=== PATIENT | female | born 1995 | race Caucasian/White ===

== ENCOUNTER → 2023-09-24 09:26 | Outpatient (CLI) | payer OTHER, SELFPAY ==
[2023-09-24 10:18] LABS: Add Manual Diff / Slide Review NO; Basophils Absolute Auto 0 /uL (0-100); Basophils Percent Auto 0.2 % (0-2); Eosinophils Absolute Auto 0 /uL (0-450); Eosinophils Percent Auto 0.3 % (2-4); Hematocrit 37.5 % (36-46); Hemoglobin 13.2 g/dL (12.0-16.0); Lymphocytes Absolute Auto 1600 /uL (1100-4500); Lymphocytes Percent Auto 17.5 % (25-40); Mean Corpuscular HGB Conc 35.3 % (30-36); Mean Corpuscular Hemoglobin 31.5 PG (26-34); Monocytes Absolute Auto 600 /uL (0-900); Monocytes Percent Auto 6.2 % (3-14); Neutrophils Absolute Auto 6800 /uL (1500-7000); Neutrophils Percent Auto 75.8 % (50-75); Platelet Count 294 X10^3/uL (150-400); Red Blood Cell Count 4.21 X10^6/uL (4.0-5.2); Red Cell Distribution Width 12.7 % (11.6-14.8)
[2023-09-24 11:01] LABS: Appearance Urine UA CLEAR; Bilirubin Urine UA NEGATIVE (NEGATIVE); Color Urine UA YELLOW; Glucose Urine UA NEGATIVE (Negative); Ketones Urine UA NEGATIVE (NEGATIVE); Leukocyte Esterase Urine UA 1+ (NEGATIVE); Nitrite Urine UA NEGATIVE (Negative); Occult Blood Urine UA TRACE-INTACT (Negative); Protein Urine UA NEGATIVE (Negative); Urobilinogen Urine UA 0.2 E.U./dL (0.2)
[2023-09-24 11:30] LABS: pH Urine UA 5.5 (4.5-8.0)
[2023-09-24 12:04] LABS: Urine Chlamydia NOT DETECTED; Urine N gonorrhoeae NOT DETECTED
[2023-09-24 12:29] LABS: Bacteria Urine None Seen; Culture Indicated Urine Cult Not Indicated; RBC Urine 0-1/HPF (0-5/HPF); Squamous Epithelial Cell Urine 10-30 /HPF (0-5/HPF); WBC Urine 5-10/HPF (0-5/HPF)
[2023-09-25 05:16] LABS: HIV 1 & 2 Ab/Ag 4th Gen Combo NEGATIVE (NEGATIVE); Hep C Virus Ab w/Reflex Quant NEGATIVE s/c (NEGATIVE); Hepatitis B Surface Antigen NEGATIVE s/c (NEGATIVE); Rubella Antibody IgG 65.8 IU/mL (>15)
[2023-09-26 10:42] LABS: Varicella IgG Antibody 1128 index (Immune >165)
[2023-09-27 05:54] LABS: RPR Screen Non Reactive (Non Reactive)
== END ==
LOC: LAB 09:28
PROVIDERS: PCP Student in an Organized Health Care Education/Training Program; Referring Provider Student in an Organized Health Care Education/Training Program; Visit Provider Student in an Organized Health Care Education/Training Program
DX: Z34.01 Encounter for supervision of normal first pregnancy, first trimester (principal)
CPT/HCPCS: 36415; 80055; 81003; 81015; 86787; 86803; 86850; 86900; 86901; 87086; 87389; 87491; 87591

== ENCOUNTER → 2023-11-28 07:48 | Outpatient (CLI) | payer OTHER, SELFPAY ==
--- NOTE | 2023-11-28 07:49 | DI.US.S_ITS ---
PROCEDURE: US OB >= 14 WEEKS FETUS INDICATIONS: ANATOMY OUTSIDE/PRIOR DATING DATA: Last menstrual period (LMP): 07/16/2023. LMP-based estimated date of delivery (PENELOPE): 04/21/2024. First dating scan (date and location): 09/16/2023. Estimated date of delivery (PENELOPE) from first dating scan: 04/19/2024. The calculations are made using working PENELOPE of 04/21. TECHNIQUE: Real-time scanning was performed of the fetus, with image documentation and biometric measurements. COMPARISON: None. FINDINGS: General: A single living intrauterine gestation is present. Presentation: Variable. Placenta: Placental position is anterior , without previa. Amniotic fluid index: 15.6 cm, normal range is 5-24 cm. Single deepest vertical pocket is 5.1 cm. heart rate: 157 beats per minute. Maternal cervical canal: 0.3 cm long. Normal lower limit is 2.5 cm. biometrics: Biparietal diameter: 19 weeks 6 days Head circumference: 19 weeks 2 days Abdominal circumference: 19 weeks 5 days Femur length: 18 weeks 6 days Clinically estimated gestational age: 19 weeks 2 days Composite gestational age from present scan: 19 weeks 3 days Estimated weight and percentile: 286 g; 47% for gestational age. Anatomic survey: Neuro: Ventricles are non-dilated at less than 10 mm. Cisterna magna is normal at 3-11 mm. Cerebellum is normal in size and morphology. Nuchal skin fold: Normal at less than 6 mm between 14-21 weeks gestational age. Face: Nose and lips, facial profile are normal. Spine: No evidence for spina bifida. Heart: 4-chambered heart is present, with normal ventricular outflow tracts. Diaphragm: Diaphragm is intact. Stomach: Left-sided stomach is present. Kidneys: No hydronephrosis. Normal is less than 5 mm in 2nd trimester, less than 7 mm in 3rd trimester. Cord: 3-vessel cord has orthotopic insertion. Bladder: Normal in size. Extremities: All 4 extremities identified. Other: Question double nuchal cord. IMPRESSION: 1. A single living intrauterine gestation with appropriate interval growth. 2. Normal anatomic survey. 3. Question double nuchal cord. Recommend follow-up imaging as clinically indicated. We strive to produce accurate, complete, and clear reports of imaging services. To assist us in improving patient care, this report was composed using standard report templates and voice recognition software. Therefore, it may contain abnormal punctuation, insertions and/or omissions. Occasional wrong-word or sound-alike substitutions may occur. Though we review the report and make efforts to correct it, we do recommend that the report be read carefully in proper context to recognize any text inaccuracies. Measurement variability for biometric dating: +/- 7 days from 14 weeks to 15 weeks 6 days gestation, +/- 10 days from 16 weeks to 21 weeks 6 days gestation, +/- 2 weeks from 22 weeks to 27 weeks 6 days gestation, +/- 3 weeks for 28 weeks gestation or later. weight reference: 4500 g or EFW >90/95% is considered macrosomia or large for gestational age. EFW <10% is small for gestational age. EFW 5% or less is considered intra-uterine growth restriction. Dictated by: Yadira Judd M.D. on 11/28/2023 at 10:36 Approved by: Yadira Judd M.D. on 11/28/2023 at 10:43
== END ==
LOC: US 07:49
PROVIDERS: PCP Student in an Organized Health Care Education/Training Program; Referring Provider Family Medicine; Visit Provider Family Medicine
DX: Z34.82 Encounter for supervision of other normal pregnancy, second trimester (principal); Z3A.19 19 weeks gestation of pregnancy
CPT/HCPCS: 76811

== ENCOUNTER → 2023-12-12 11:08 | Outpatient (CLI) | payer OTHER, SELFPAY | PROVIDERS: PCP Student in an Organized Health Care Education/Training Program; Visit Provider Family Medicine | DX: Z34.80 Encounter for supervision of other normal pregnancy, unspecified trimester (principal); N39.0 Urinary tract infection, site not specified | CPT/HCPCS: 87086 ==

== ENCOUNTER 2024-04-12 23:13 | Inpatient (IN) | payer OTHER, SELFPAY ==
--- NOTE | 2024-04-12 23:24 | PM.OBTRLD ---
Visit Information Visit Information Date of evaluation: 04/12/24 Primary OB Provider: Sofia Jin On-call OB Provider: Sofia Jin Reason for Evaluation: Yes rupture of membranes Comments/Additional reasons for admission: 28YO @ 38wks 5day by LMP concordant with 9wk US here for evaluation of PROM. Noticed leaking of clear fluid at 1915 that has continued. Feeling moderate contractions all afternoon that are slowly increasing in frequency and intensity. Transferred into [facility] care in 2nd trimester from FPs at [facility]. Desires low intervention and to labor outside of the hospital as long as possible. 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) current occupational exposures/hazards: No special arthur needs: No travel history: recent (domestic, including [place], Covid in April) seatbelt use: always water heater temp set < 120 deg: Yes working smoke detector in home: Yes fire extinguisher in home: No (Will get one) carbon monox detector in home: Yes firearms in home: No do you feel safe at home: Yes Smoking Status: Never smoker second hand exposure: No alcohol intake: former (~3-4/week when not ) substance use type: does not use and marijuana (very occasionally, not while /) during the past year weight has: other (fluctuates a lot) well-balanced diet: daily or most days daily servings fruits/ve or more times/day caffeine: Yes (AM cup coffee, green tea in PM some days) Type(s) of exercise: aerobic, weight lifting and running frequency: 5-6 times per week Review of Systems Review of Systems ROS: Yes All systems reviewed with the patient and are negative except as otherwise documented Evaluation Evaluation Baseline heart rate: 125 Variability: Moderate (11-25) monitor accelerations: Present Monitor Decelerations: Absent
--- NOTE | 2024-04-13 00:24 | P.HPOB_ITS ---
OB HPI Date/Time Date of admission: 04/13/24 Date Patient Seen: 04/12/24 Time Patient Seen: 23:30 History of Present Condition Chief complaint: observation of labor PENELOPE Calculator 2 Estimated Delivery Date Method Current WG Current Estimate 04/21/24 LMP (Certain) 38w 6d Other Estimates 04/19/24 Ultrasound #1 39w 1d Estimated Gestational Age (weeks): 38.6 : 2 Para: 1 Narrative: 28YO @ 38wks 5day by LMP concordant with 9wk US here for evaluation of PROM. Noticed leaking of clear fluid at 1915 that has continued. Feeling moderate contractions all afternoon that are slowly increasing in frequency and intensity, strong while checking into hospital. Now breathing through strong contractions every 2-4 minutes, coping well. Feeling less FM since ROM. No vaginal bleeding. Continues to leak clear fluid. Transferred into [facility] care at 25weeks EGA from FPs at [facility]. Desires low intervention . Accompanied by her mother and partner, Christian. care: good care, initiated at week # (9), number of visits (8) and pounds weight gain (23) Dating criteria OB: LMP confirmed by 1st trimester US Ultrasounds: normal mid trimester US Obstetrical complications: none Medical complications OB: none Preadmission Labs Last OB Lab Results: 2 Blood Type O Positive 09/24/23 09:34 Antibody Screen Negative 09/24/23 09:34 Hct 40.7 % (36-46) 04/13/24 00:30 Hgb 14.1 g/dL (12.0-16.0) 04/13/24 00:30 Hep Bs Antigen Negative s/c (NEGATIVE) 09/24/23 09:34 Hepatitis C Antibody Negative s/c (NEGATIVE) 09/24/23 09:34 Rubella Antibody 65.8 IU/mL (>15) 09/24/23 09:34 VZV IgG Antibody 1128 index (Immune >165) 09/24/23 09:34 Glucose Tolerance Testin hr (102) -: Chlamydia screen: negative, Gonorrhea screen: negative and Urine: negative -: PAP smear: Normal Genetic Screens: Cell-free DNA: Normal External Labs -: Urine: negative Prior (ies) Past Pregnancies Del. Date GA/Weeks Labor Lgth Wt Sex Route Outcome Anesthesia Place Delv Breastfeed Preg Comp Name 08/21/21 39+ 23 2.948 kg Male vaginal live - full term epidural Berto Perrin 9 months other [place] Delivery Date: 08/21/21 Last Updated by: Manisha Greenfield RN 1st trimester HG Evaluation Evaluation Baseline heart rate: 125 Variability: Moderate (11-25) monitor accelerations: Present Monitor Decelerations: Absent Contraction Frequency (minutes): 2 Uterine Contraction Intensity: Moderate Status: Category l Comments: CE deferred until 2 hours of strong contractions PFSH Medical History Anxiety Skin tag Arm fracture Vitamin D deficiency Surgical History History of dental surgery [place] teeth extracted Family History Grandfather Neuroendocrine carcinoma Grandmother Lymphoma Grandmother Parkinson's disease Social History marital status: number of children: 1 household members: spouse and children lives independently: Yes caregiver/support person: Yes housing: house pets and animals: Yes (dogs) education level: college occupational status: 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, 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 [employer]) current occupational exposures/hazards: No special arthur needs: No travel history: recent (domestic, including [place], Covid in April) seatbelt use: always water heater temp set < 120 deg: Yes working smoke detector in home: Yes fire extinguisher in home: No (Will get one) carbon monox detector in home: Yes firearms in home: No do you feel safe at home: Yes Smoking Status: Never smoker second hand exposure: No alcohol intake: former (~3-4/week when not ) substance use type: does not use and marijuana (very occasionally, not while /) during the past year weight has: other (fluctuates a lot) well-balanced diet: daily or most days daily servings fruits/ve or more times/day caffeine: Yes (AM cup coffee, green tea in PM some days) Type(s) of exercise: aerobic, weight lifting and running frequency: 5-6 times per week Meds Home Medications and Allergies Home Medications Medication Instructions Recorded Confirmed Type calcium acetate-magnesium carb 450 tab PO 08/18/23 12/12/23 History mg-200 mg tablet cholecalciferol (vitamin D3) 250 250 mcg PO DAILY 08/18/23 12/12/23 History mcg (10,000 unit) capsule vitamin-ferrous sulfate tab PO 08/18/23 12/12/23 History 27 mg iron-folic acid 0.8 mg tablet ondansetron 4 mg disintegrating 4 mg PO Q8H PRN nausea and 09/16/23 12/12/23 Rx tablet vomiting #30 tabs Allergies Allergy/AdvReac Type Severity Reaction Status Date / Time Penicillins Allergy Intermediate Hives Verified 04/13/24 00:49 Review of Systems Review of Systems ROS: Yes All systems reviewed with the patient and are negative except as otherwise documented OB Exam Vital signs Blood Pressure: 127/82 Pulse Rate: 82 Respiratory Rate: 16 Temperature: 97.2 F Resp Effort & Inspection: normal respiratory effort and able to speak in complete sentences Auscultation: clear to auscultation bilaterally Cardio Rate: regular rate Rhythm: regular rhythm Heart Sounds: S1 normal and S2 normal Presentation: vertex Amniotic Fluid: clear Objective Labs 04/13/24 00:30 Assessment and Plan Assessment and Plan Assessment and Plan narrative: A: Tem primipara Approacing active labor SROM x 5 hours without sx of infection No indication for antibiotics at this time Cat I FHR P: Admit, routine labor orders. May switch to intermittent auscultation. Labor support PRN. Reassess in 1-2 hours or sooner, PRN. Time-Based Coding :: [TOTAL MINUTES] spent with patient and on the chart (including review of chart, obtaining history, exam, reviewing outside data, placing orders, documenting exam and treatment plan, and counseling patient) on [DATE].
[2024-04-13 00:44] VITALS: BP 127/82; PULSE 82; RESP 16; TEMP 36.2
[2024-04-13 00:47] VITALS: BP 122/78
[2024-04-13 00:51] LABS: Add Manual Diff / Slide Review NO; Basophils Absolute Auto 100 /uL (0-100); Basophils Percent Auto 0.7 % (0-2); Eosinophils Absolute Auto 0 /uL (0-450); Eosinophils Percent Auto 0.4 % (2-4); Hematocrit 40.7 % (36-46); Hemoglobin 14.1 g/dL (12.0-16.0); Lymphocytes Absolute Auto 3100 /uL (1100-4500); Lymphocytes Percent Auto 26.3 % (25-40); Mean Corpuscular HGB Conc 34.7 % (30-36); Mean Corpuscular Hemoglobin 31.3 PG (26-34); Mean Corpuscular Volume 90.2 fL (80-100); Monocytes Absolute Auto 700 /uL (0-900); Monocytes Percent Auto 6.2 % (3-14); Neutrophils Absolute Auto 7700 /uL (1500-7000); Neutrophils Percent Auto 66.4 % (50-75); Platelet Count 217 X10^3/uL (150-400); Red Blood Cell Count 4.51 X10^6/uL (4.0-5.2); Red Cell Distribution Width 13.2 % (11.6-14.8); White Blood Cell Count 11.7 X10^3/uL (4.5-11.0)
[2024-04-13] MEDS: ONDANSETRON 4 MG/2 ML INJ IV ×2 (01:13→02:22)
--- NOTE | 2024-04-13 02:08 | PM.OBPNLAB ---
Date/Time Date Patient Seen: 04/13/24 Time Patient Seen: 01:30 Pain Control Pain control: tolerating well Comments: Zeke has been coping well with strong contractions every 2-3 minutes by moving on the exercise ball and now using the cub on the bed. She continues to feel leaking of amniotic fluid. Her nausea was relieved by 1 dose of IV Zofran. , Christian, and Mother, Jennifer, present and supported. Vitals BP: 127/82 HR: 85 SpO2: 98% Temp: 36.2 C Pelvic Exam Dilation (cm): 5 Effacement (%): 75 station: -1 Amniotic membrane status: Leaking Comments: Clear fluid Contractions Monitor mode: Palpation Contraction frequency (min): 3 Contraction duration (min): 1 Contraction pattern: Regular Contraction intensity: Moderate Status Heart Rate Baseline: 130 Comments: Reassuring by IA Assessment and Plan Assessment: active labor Plan: continuous present management Comments: Assessment: Active labor, coping well SROM x 5 hours, no signs of infection FHR reassuring by IA Plan: Labor support PRN Continue IA Reassess in 4 hours or sooner PRN
--- NOTE | 2024-04-13 05:50 | P.PNOB_ITS ---
Date/Time Date Patient Seen: 04/13/24 Time Patient Seen: 05:30 Pain Control Pain control: other (Not tolerating well) Comments: Zeke labored in the tub briefly until she felt increased rectal pressure and an urge to push. After moving back to her room, she began pushing. After approx 1 hour, a bulging forebag was identified on exam and grossly ruptured while pushing. Zeke continued to labor for around an hour and then began to have int ense cramping in her left leg that impedes pushing. She tried NO2 with some relief. Is now requesting an epidural to cope with leg cramping. Vitals BP: 122/66 HR: 96 bpm Temp: 35.7 Pelvic Exam Dilation (cm): 9.5 (Anterior lip) Effacement (%): 100 station: -1 Amniotic membrane status: Leaking Comments: head deflexed and LOP Contractions Monitor mode: Palpation Contraction frequency (min): 3 Contraction pattern: Regular Contraction intensity: Moderate Status Heart Rate Baseline: 120 Comments: FHR reassuring by IA Assessment and Plan Assessment: active labor Plan: other Comments: Assessment: Active labor, not coping well Requesting epidural FHR reassuring by IA Plan: Consult anesthesia Initiate LR bolus and continuous monitoring Reassess post-epidural
--- NOTE | 2024-04-13 06:09 | PM.AN.REGBLK ---
Regional Block Pre-procedure Procedure: Continuous Lumbar Epidural for L&D Attending OB provider: Sofia Jin PMH/ROS narrative: 39+, labor, no complications obstetric or medical. ASA Class: II Labs: Hct 40.7 % (36-46) 04/13/24 00:30 Plt Count 217 X10^3/uL (150-400) 04/13/24 00:30 Medications: Current Medications Generic Name Dose Route Start Last Admin Trade Name Freq PRN Reason Stop Dose Admin Calcium Carbonate 1,000 mg 04/13/24 00:21 Calcium Carbonate 500 Mg Tab PO Q4HR PRN Dyspepsia Carboprost Tromethamine 250 mcg 04/13/24 00:07 Carboprost 250 Mcg/Ml Ampul IM Q90M PRN Bleeding Lactated Ringer's 1,000 mls @ 100 mls/hr 04/13/24 00:15 Lactated Ringers IV CONT EAN Oxytocin/Lactated Ringer's 30 unit in 500 mls @ 200 mls/hr 04/13/24 00:07 Oxytocin Premix IV CONT PRN Bleeding Protocol Tranexamic Acid 1,000 mg/ 100 mls @ 600 mls/hr 04/13/24 00:07 Sodium Chloride IV NOW PRN Bleeding Lidocaine HCl 20 ml 04/13/24 00:07 Lidocaine 1% 20 Ml INJ INTRA-OP PRN Post Delivery Methylergonovine Maleate 0.2 mg 04/13/24 00:07 Methylergonovine 0.2 Mg Tablet PO Q6HR PRN Heavy Bleeding Methylergonovine Maleate 0.2 mg 04/13/24 00:07 Methylergonovine 0.2 Mg/Ml Vial IM NOW PRN Bleeding Misoprostol 800 mcg 04/13/24 00:07 Misoprostol 200 Mcg Tablet MN NOW PRN Bleeding Misoprostol 400 mcg 04/13/24 00:07 Misoprostol 200 Mcg Tablet SL NOW PRN Bleeding Naloxone HCl 0.2 mg 04/13/24 00:07 Naloxone 0.4 Mg/Ml Vial IV Q2MIN PRN Opiate Reversal Ondansetron HCl 4 mg 04/13/24 00:21 04/13/24 02:22 Ondansetron 4 Mg/2 Ml Inj IV 4 mg Q4HR PRN Administration Nausea And Vomiting Oxytocin 10 unit 04/13/24 00:07 Oxytocin 10 Unit/Ml Vial IM NOW PRN Bleeding Allergies: Allergies Allergy/AdvReac Type Severity Reaction Status Date / Time Penicillins Allergy Intermediate Hives Verified 04/13/24 00:49 Procedure Insertion date: 04/13/24 Insertion time: : Prep/Local: betadine x3 and 1% lidocaine Interspace: L34 Patient position: sitting Needle: 18 gauge Hustead (CSE:27g Pencan throug Hustead, clear CSF, 1mL 0.25% bupiv) Loss of resistance with: saline JEFF at (cm): 6 Catheter placed at SKIN (cm): 12 Catheter in SPACE (cm): 6 Insertion: No CSF, No Blood, No Paresthesia with insertion, No Paresthesia with injection and No Test dose reaction Initial Medications TEST DOSE time: TEST DOSE: 1.5% lidocaine with epinephrine 1:200k (mL): 3 BOLUS DOSE time: :37 BOLUS DOSE (mL): 4 BOLUS DOSE med: other (infusate) Infusion INFUSION: 0.125% bupivacaine and with fentanyl 2 mcg/mL Initial rate (mL/hr): 10 Subsequent interventions: PCEA@10+4 Post-procedure Anesthesia date START: 04/13/24 Anesthesia time START: 06:16 Anesthesia date END: 04/13/24 Anesthesia time END: 07:44 Post-procedure Anesthesia Assessment: Yes CV function: HR/BP stable, Yes Resp function: RR/sat/airway adequate, Yes Post-op hydration adequate, Yes Pain control adequate, Yes Nausea & vomiting absent, Yes Temperature > 36 C, Yes Mental status appropriate and No Anesthesia complications
--- NOTE | 2024-04-13 08:01 | PM.OBPRVD ---
Labor & Delivery Delivery date: 04/13/24 Intrapartal Events: None Cervical ripening method: none Induction method: none Delivery monitor: none (Intermittent Auscultation prior to epidural), external FHT and external uterine Route of delivery: L&D Laceration Description: Superficial Quantitative Blood Loss: 50 Anesthesia Type: Epidural Complications: After Zeke received her epidural and rested for 30 minutes she was found to be 10/100/+1. She pushed for a short second stage of 3 minutes. FHR was category I throughout second stage. Normal spontaneous vaginal of vigorous male infant on 04/13/2024 at 0734 in NANCI position with reduction of compound left hand. Left hand manually reduced and anterior, then posterior shoulders delivered easily with maternal effort, four-handed catch by FOB and CNM. was placed on maternal abdomen, stimulated and dried. Apgars 9 at 1 min and 9 at 5 min. IV pitocin initiated. Delayed cord clamping until cord slopped pulsing after 5 minutes, at which time 3 vessel cord was doubly clamped and cut by FOB. Cord blood collected. Gentle cord traction led to spontaneous delivery of intact placenta in Schultze presentation. Fundus immediately firm and bleeding scant. Perineum and vagina were inspected and found to be intact, with one superficial laceration on the left labia no indication for repair. QBL 50 ml. Baby and mother are in stable condition. [place] Baby 1: gender: Male Presentation: compound (Hand) Position: Left Occiput Anterior Placenta delivery description: Spontaneous and Normal Configuration Cord Vessel Description: 3 Vessels score (1 min): 9 score (5 min): 9 weight: 3.525 kg Plan for aftercare: Routine care
[2024-04-13] MEDS: KETOROLAC 30 MG/ML VIAL IV (09:19)
[2024-04-13] MEDS: ACETAMINOPHEN 325 MG TABLET 650 MG PO ×2 (09:19→18:02)
[2024-04-13] MEDS: DERMOPLAST SPRAY 20% 60 ML 1 SPRAY TOP (09:20)
[2024-04-13] MEDS: LANOLIN OINT 7 GM 1 APPLIC TOP (09:20)
[2024-04-13] MEDS: WITCH HAZEL/GLYCERIN PADS 1 EACH TOP (09:21)
[2024-04-13] MEDS: IBUPROFEN 600 MG TABLET PO ×2 (15:11→21:01)
[2024-04-14] MEDS: ACETAMINOPHEN 325 MG TABLET 650 MG PO ×2 (00:07→06:08)
[2024-04-14] MEDS: IBUPROFEN 600 MG TABLET PO ×2 (03:37→09:59)
--- NOTE | 2024-04-14 07:11 | PM.OBDS.1 ---
Discharge Providers Provider Date of admission: 04/12/24 23:13 Discharge Date: 04/14/24 Primary care physician: Danielle Gomez MD Consults: 04/14/24 07:55 Consult to Pants Presser Automatic Routine Comment: Discharge provider: Sofia Jin CNM Summary Hospital Course Date Patient Seen: 04/14/24 Time Patient Seen: 07:15 Diagnoses: 080 Hospital Course: Zeke has had a routine course s/p NSVB with no lacerations. She is ambulating, voiding, and independently. Her bleeding is scant, fundus is firm at umbilicus -1. Her pain has been well managed by PO ibuprofen and acetaminophen. Peripartum Data Infant Delivery Method: Natural Vaginal Laceration Description: Superficial (Left labial) 1: Gender: Male Disposition of : home Discharge Diagnosis (1) Encounter for supervision of other normal , unspecified trimester: Status: Acute Status at Discharge Cognitive/behavioral status at discharge: oriented Functional status at discharge: independent ambulation Overall status at discharge: patient is progressing back to baseline Time Spent with Patient Time attestation: Total time spent providing and/or coordinating discharge services: > 30 minutes Time spent: Greater than 30 minutes Objective Labs 04/13/24 00:30 Exam Vital Signs (past 8 hours): BP: 117/83 HR: 74 bpm RR: 16/min Temp: 98.4 F SpO2: 99% Other: 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 Lochia scant. Discharge Plan Discharge Plan Patient Disposition: Home Discharge orders & Medications Prescriptions: New ibuprofen 600 mg Tablet 600 mg PO Q6HR PRN (Reason: Pain, Mild (1-3)) 14 Days Qty: 60 0RF Continued vit-ferrous sulfat-FA 27 mg iron- 0.8 mg tablet PO cholecalciferol (vitamin D3) 250 mcg (10,000 unit) capsule 250 mcg PO DAILY calcium acetate-magnesium carb 450-200 mg tablet PO Discontinued ondansetron 4 mg tablet,disintegrating 4 mg PO Q8H PRN (Reason: nausea and vomiting) Qty: 30 2RF Medication counseling provided by Pharmacist: No Follow up/Referrals: Sofia Jin CNM [Advanced Refrigeration Operator] - (2-week phone appointment on TuesdayApril 27 at 9:30 AM 6-week in-person appointment on TuesdayMay 25 at 10:30 AM) Danielle Gomez MD [Primary Care Provider] - Diet/Activity/Treatments Diet: Regular Diet comment: High fiber, hydrate Activity: Bed rest x 2 weeks Skin/Wound/Dressing Care Skin care: Normal Report to your healthcare provider any signs of infection, such as:: chills, fever, increased pain, unusual drainage and unusual redness Visit Report/Discharge Packet Instructions: DI for Depression Stand Alone Forms: Patient Portal/API, Stroke Signs & Symptoms Discharge Data Primary Care Provider: Danielle Gomez
[2024-04-14 09:36] VITALS: BP 125/82; PULSE 74; RESP 16; TEMP 36.6
[2024-04-14] MEDS: DOCUSATE 100 MG CAPSULE PO (09:59)
== END 2024-04-14 11:25 | disposition home or self-care (01) | DRG 807 ==
PROVIDERS: Admitting Provider Nurse Practitioner Obstetrics & Gynecology; PCP Student in an Organized Health Care Education/Training Program; Referring Provider Nurse Practitioner Obstetrics & Gynecology; Visit Provider Nurse Practitioner Obstetrics & Gynecology
DX: O42.02 Full-term premature rupture of membranes, onset of labor within 24 hours of rupture (principal); Z37.0 Single live birth; Z3A.38 38 weeks gestation of pregnancy
CPT/HCPCS: 36415; 59050; 84112; 85025; 86850; 86900; 86901; G0379; J1885; J2405

== ENCOUNTER → 2025-06-29 09:17 | Outpatient (CLI) | payer OTHER, SELFPAY ==
--- NOTE | 2025-06-29 09:19 | DI.MRI.S_ITS ---
PROCEDURE: MR LUMBAR SPINE WO CON INDICATIONS: pain TECHNIQUE: Noncontrast sagittal T1 spin echo and T2 fast echo, sagittal STIR, and T2 fast spin echo through the lumbar spine. In cases with scoliosis, additional coronal T2 fast spin echo may be performed. COMPARISON: None. FINDINGS: Image quality: Excellent. Alignment and Curvature: There is normal bony alignment. Bone Marrow: Marrow is of normal overall signal. No acute vertebral body compression fractures. Bilateral pars defects at L5. Spinal Cord: Conus medullaris terminates at the L1 level. Visualized cord demonstrates normal signal and size. Paraspinous Soft Tissues: No paravertebral masses. T12-L1: Normal appearance. L1-L2: Normal appearance. L2-L3: Normal appearance. L3-L4: Normal appearance. L4-L5: Degenerated disc with symmetric disc protrusion which indents anterior thecal sac but does not result in significant spinal canal or neural foraminal stenosis. L5-S1: Degenerated disc with central disc extrusion which indents the midline central anterior thecal sac but does not result in significant spinal canal or lateral recess stenosis. Moderate left and mild right neural foraminal stenosis due to disc height loss and subarticular symmetric disc bulge. IMPRESSION: 1. Bilateral pars defects at L5 without isthmic spondylolisthesis. 2. Moderate left neural foraminal stenosis at L5-S1. 3. Degenerated discs at L4-5 and L5-S1. Dictated by: Wilmer Rossi M.D. on 07/01/2025 at 12:17 Approved by: Wilmer Rossi M.D. on 07/01/2025 at 12:21
== END ==
PROVIDERS: PCP Student in an Organized Health Care Education/Training Program; Referring Provider Chiropractor; Visit Provider Chiropractor
DX: M51.16 Intervertebral disc disorders with radiculopathy, lumbar region (principal); M51.17 Intervertebral disc disorders with radiculopathy, lumbosacral region; M48.07 Spinal stenosis, lumbosacral region; M43.06 Spondylolysis, lumbar region; M99.13 Subluxation complex (vertebral) of lumbar region
CPT/HCPCS: 72148